=== PATIENT | male | born 1990 | race Caucasian/White ===

== ENCOUNTER 2024-07-24 10:33 | Emergency (ER) | payer MEDICAID ==
[~2024-07-24] VITALS: Ht 172.7 cm; Wt 122.5 kg
[2024-07-24 10:41] VITALS: BP 127/94; PULSE 97; RESP 24; TEMP 97.7; O2SAT 96
[2024-07-24] MEDS: LORazepam 1 MG TAB PO ONE (11:52)
== END 2024-07-24 12:50 | disposition left against medical advice (07) ==
LOC: MED 10:33
DX: F15.90 Other stimulant use, unspecified, uncomplicated (principal); R06.02 Shortness of breath; R63.0 Anorexia
CPT/HCPCS: 99283